=== PATIENT | female | born 1950 | race Caucasian/White ===

== ENCOUNTER 2017-03-19 16:45 | Emergency (ER) | payer MEDICAID ==
[2017-03-19 19:26] LABS: CALCIUM 8.7 mg/dL (8.5-10.1); CARBON DIOXIDE 27.7 mmol/L (21-32); CHLORIDE SERUM 107 mmol/L (98-107); CREATININE SERUM 0.7 mg/dL (0.6-1.0); GFR1 > 60 mL/min; GLUCOSE SERUM 114 mg/dL (74-106); POTASSIUM SERUM 3.7 mmol/L (3.5-5.1); SODIUM SERUM 142 mmol/L (136-145)
[2017-03-19 19:27] LABS: BASOPHIL % 1.4 % (0-2); PLATELET COUNT 198 x10^3mcL (130-400); RED CELL DISTRIBUTION WIDTH 13.3 % (11.5-14.5)
[2017-03-19 19:31] LABS: ALBUMIN 3.5 g/dL (3.4-5.0); ALKALINE PHOSPHATASE 73 U/L (46-116); ALT/SGPT 26 U/L (14-59); AST/SGOT 20 U/L (15-37); BILIRUBIN TOTAL 0.29 mg/dL (0.20-1.00); TOTAL PROTEIN, SERUM 7.5 g/dL (6.4-8.2)
[2017-03-19 21:06] LABS: MAGNESIUM 2.3 mg/dL (1.8-2.4); PHOSPHOROUS 3.1 mg/dL (2.5-4.9)
[2017-03-19 21:09] LABS: CHOLESTEROL/HDL RATIO 4.7
[2017-03-19 21:14] LABS: FREE T4 1.01 ng/dL (0.76-1.46); FREE THYROXINE INDEX 2.8 ug/dL (1.4-4.5); T4(THYROXINE) 8.3 ug/dL (4.7-13.3)
[2017-03-19 21:17] LABS: T3 TOTAL 0.77 ng/mL
[2017-03-20] MEDS ORDERED: PROVENTIL0.09 MG/A1 (04:49)
[2017-03-20 08:34] LABS: microscopic required? YES; urine erythrocyte 2+ (NEGATIVE)
[2017-03-20 10:10] VITALS: BP 126/64
--- NOTE | 2017-03-20 14:01 | NUR ---
echocardiogram not done patient discharged
== END 2017-03-20 10:30 | disposition home or self-care (01) ==
LOC: ED 16:45
PROVIDERS: Emergency Medicine; Family Medicine
DX: R07.89 Other chest pain (principal); T78.49XA Other allergy, initial encounter; Z79.52 Long term (current) use of systemic steroids; X58.XXXA Exposure to other specified factors, initial encounter
CPT/HCPCS: 83880; 84439; J1200; J2930; J3490; J7030; Q0092